=== PATIENT | female | born 1945 | race Caucasian/White ===

== ENCOUNTER 2022-06-30 11:41 | Outpatient (CLI) | payer MEDICARE, OTHER, SELFPAY ==
[2022-06-30 22:03] LABS: Chloride* 104 mmol/L (96-114)
[2022-06-30 22:04] LABS: Albumin* 4.7 g/dL (3.3-5.0); Potassium* 4.2 mmol/L (3.6-5.1); Sodium* 140 mmol/L (135-149)
[2022-06-30 22:06] LABS: Cholesterol* 156 mg/dL (90-199)
[2022-06-30 22:07] LABS: Alanine Aminotransferase* 26 U/L (4-35); Alkaline Phosphatase* 74 U/L (40-150); Aspartate Amino Transferase* 30 U/L (12-35); Bilirubin Total* 0.7 mg/dL (0.1-1.5); Blood Urea Nitrogen* 16 mg/dL (7-30); Carbon Dioxide* 29 mmol/L (20-32); Creatinine* 0.7 mg/dL (0.5-1.5); Estimated Glomerular Filt Rate 88 ml/min; Glucose* 96 mg/dL (60-115); Triglycerides* 231 mg/dL (40-149)
[2022-06-30 22:08] LABS: Calcium* 9.4 mg/dL (8.4-10.6); HDL Cholesterol* 52 mg/dL (>=50); LDL Cholesterol Calculated 58 mg/dL (<100)
== END 2022-06-30 11:42 | disposition home or self-care (01) ==
PROVIDERS: Visit Provider Physician Assistant Medical
DX: Z01.818 Encounter for other preprocedural examination (principal); E78.5 Hyperlipidemia, unspecified; I10 Essential (primary) hypertension; E66.9 Obesity, unspecified
CPT/HCPCS: 80053; 80061

== ENCOUNTER 2022-09-28 13:45 | Outpatient (RCR) | payer MEDICARE, OTHER, SELFPAY ==
--- NOTE | 2022-07-22 10:17 | PT.OPE ---
PT [place] [facility] PT [facility] Eval Start: 07/01/22 12:29 Freq: Status: Active Protocol: Document 07/01/22 14:37 KN (Rec: 07/01/22 14:53 KN Desktop) E-signed By Dhaval Casillas, PT, ATC Physical Therapy Outpatient Evaluation Insurance Information Insurance Name Medicare B Medical Diagnosis M17.12 Unilateral primary osteoarthritis, left knee Treating Diagnosis L knee pain L knee stiffness L TKA pre op (07/06/22 surgery ) Referring MD Hoffmann Subjective Subjective Three year history of L knee pain and stiffness. Symptoms have gotten to a level that she is ready for the procedure . Struggling with ADL's, steps , walking and sleeping. Most recent development of soreness and swelling on the inside and back of the L knee. Surgery scheduled 07/06/22. R TKA 2009 Pain Comments L knee pain average, 1-2/10. 5/10 with sustained WB'ing, walking, squatting. Date of Last Physician Visit 06/22/22 Current Work Status Retired Preferred Name César [facility] Weight Bearing Status Full Weight Bearing Therapy Limitations/Systems Review Not Limited Objective Range of Motion R knee 0-116 degrees flexion L knee 4-105 degrees flexion L hip and ankle ROM WNL's Strength R hip 5/5, L hip 5/5 except for hip ABD 4+/5 R and L knee EXT and FLEX 5/5, knee ext pain producing in the L knee. R and L ankle 5/5 all patterns . Swelling Mild through pes anserine region of posterolateral L knee. Palpation Tender over all joint line surfaces of L knee. Balance & Gait Walks without assistive device . L knee terminal ext deficit at heel strike and stride length vs R. Assessment Assessment/Impression César is a pleasant 76 year old woman scheduled for a L TKA at [facility] on . She has recognized a steady decline with her functional abilities due to pain and stiffness in the involved knee. Experience with her R TKA procedure has created some calmness and peace in her mind she says as she knows what to expect. She feels comfortable with her living arrangement and the assistance she will have available to her ( and daughter) following the procedure. César was quick to show competence with walker usage, stair ascent/descent and transfers following education today in therapy. She was able to perform all of the HEP ex. s (phase 1) and said these were similar to what she performed when having the R knee repaired. Primary Functional Limitations Walking extended distances Standing > 12-15 min Squatting to vegetable picker items from floor. Finding comfort in her bed. Plan of Care Rehabilitation Potential Good Coordination/Communication With Referral Source Frequency/Duration 1x pre op visit 16-20 post op visits in PT Patient Will Be Discharged From Therapy Independent w/HEP Discharge Plan Comments Patient will return to scheduled post op PT visit on 07/08/22. Evaluation Billing Untimed Code Treatment Minutes 30 PT Eval No Charge No Complexity Low Certification Information Initial Certification Date 07/01/22 Ending Certification Date 10/01/22 Provider Signature Shows Agreement With POC & Medical Necessity Physician Signature & Date Requested Please Sign/Date Here Physician Comment/Change : Physician NPI Number #
== END 2022-09-28 15:11 | disposition home or self-care (01) ==
PROVIDERS: PCP Family Medicine; Visit Provider Orthopaedic Surgery Sports Medicine
DX: M17.12 Unilateral primary osteoarthritis, left knee (principal); Z51.89 Encounter for other specified aftercare
CPT/HCPCS: 97016; 97110; 97140; 97161; 97530

== ENCOUNTER 2023-09-15 11:11 | Outpatient (CLI) | payer OTHER, SELFPAY | END 2023-09-15 11:12 | disposition home or self-care (01) | LOC: NFLDREF 09-16 11:55 | PROVIDERS: Visit Provider Physician Assistant Medical | DX: I10 Essential (primary) hypertension (principal); E78.2 Mixed hyperlipidemia; Z13.29 Encounter for screening for other suspected endocrine disorder | CPT/HCPCS: 80053; 80061; 84443 ==